=== PATIENT | female | born 1955 | race Caucasian/White ===

== ENCOUNTER 2016-11-03 06:09 | Day surgery (SDC) | payer OTHER ==
[2016-11-02 11:32] VITALS: BMI 30.2
[2016-11-03] MEDS ORDERED: ACETAMINOPHEN INJECTION 100 ML IVPB ONE (07:04)
[2016-11-03] MEDS ORDERED: PROPOFOL 20 ML ONE ×2 (07:10)
[2016-11-03] MEDS ORDERED: ePHEDrine SULFATE 50 MG/1 ML AMPULE ONE (07:10)
[2016-11-03] MEDS ORDERED: SUCCINYLCHOLINE CHLORIDE 200 MG/10 ML VIAL ONE (07:11)
[2016-11-03] MEDS ORDERED: MIDAZOLAM HCL 2 MG/2 ML SINGLE DOSE VIAL ONE (07:11)
[2016-11-03] MEDS ORDERED: LIDOCAINE HCL 2% (20ML MULTI-DOSE VIAL) NR ONE (07:12)
[2016-11-03] MEDS ORDERED: PHENYLEPHRINE HCL 10 MG/1 ML SINGLE DOSE VIAL ONE (07:13)
[2016-11-03] MEDS ORDERED: DEXAMETHASONE SOD PHOSPHATE 4 MG/1 ML VIAL ONE (07:13)
[2016-11-03] MEDS ORDERED: LIDOCAINE 1%/EPI 1:100000 (50 ML MULTI DOSE VIAL) ONE (07:19)
[2016-11-03] MEDS ORDERED: BUPIVACAINE HCL/PF 0.5% (5MG/ML) 10 ML VIAL ONE (07:19)
[2016-11-03] MEDS ORDERED: DESFLURANE GAS 240 ML BOTTLE IH ONE (07:35)
[2016-11-03] MEDS ORDERED: ceFAZolin SODIUM 1 GM VIAL ONE (07:41)
[2016-11-03] MEDS ORDERED: LIDOCAINE 1%/EPI 1:100000 (50 ML MULTI DOSE VIAL) INF ONE ×2 (07:49→08:00)
[2016-11-03] MEDS ORDERED: BUPIVACAINE HCL/PF 0.5% (5MG/ML) 10 ML VIAL IJ ONE (08:00)
--- NOTE | 2016-11-03 08:12 | OP ---
Operative Note - Note: Operative Date: 11/03/16 Pre-Operative Diagnosis: internal derangement right knee Operation: arhtroscopy right knee with partial lateral meniscectomy and chondroplasty trochlea Post-Operative Diagnosis: Same as Pre-op Surgeon: John Valverde Anesthesia: General Estimated Blood Loss (mls): 0 Operative Report Dictated: Yes
[2016-11-03] MEDS ORDERED: oxyCODONE HCL 5 MG TABLET PO PRN (08:18)
[2016-11-03] MEDS ORDERED: ONDANSETRON 4 MG/2 ML VIAL IVPUSH PRN (08:18)
[2016-11-03] MEDS ORDERED: LACTATED RINGERS SOLUTION 1,000 ML IV SCH (08:30)
[2016-11-03] MEDS ORDERED: ONDANSETRON 4 MG/2 ML VIAL ONE (09:40)
[2016-11-03 10:10] VITALS: TEMP 98
[2016-11-03 12:00] VITALS: BP 128/63; PULSE 74
--- NOTE | 2016-11-04 00:18 | OP ---
DATE OF OPERATION: 11/03/2016 PREOPERATIVE DIAGNOSIS: Internal derangement, right knee. POSTOPERATIVE DIAGNOSIS: Internal derangement, right knee. PROCEDURE: Arthroscopy right knee, partial lateral meniscectomy, chondroplasty of the trochlea. SURGEON ATTENDING: John Valverde M.D. ANESTHESIA: General LMA. CLOSURE: 4-0 nylon COMPLICATIONS: None. CONDITION: To recovery room in stable condition. DESCRIPTION OF OPERATIVE PROCEDURE: Patient was taken to the operating room on November 03, 2016, and general anesthesia with LMA was administered by the anesthesiologist. Right lower extremity was prepped and draped in usual sterile fashion. The superolateral and medial lateral infrapatellar portal sites were infiltrated with 1% Xylocaine with epinephrine. Superolateral portal was made with a 15 blade blunt trocar. The right knee was aspirated and inflated with a cocktail of 10 mL of 1% Xylocaine with 0.5% Marcaine and 20 mL of arthroscopic saline. Medial and lateral infrapatellar portals were then made with a 15 blade blunt trocar. The scope was placed in the lateral infrapatellar portal and up into the suprapatellar pouch. Pouch was visualized to be clean. The medial and lateral gutters were visualized to be clean. The undersurface of the patella was found to be intact. The trochlea had some central grade 2-3 changes and debrided using the shaver. With valgus stress on the knee, the medial compartment was entered and medial meniscus was visualized, probed, and found to be intact. The medial femoral condyle was run and found to be intact as was the medial tibial plateau. At 90 degrees the ACL was visualized, probed and found to be intact. In the figure four position, the lateral compartment was entered. Lateral meniscus had some radial tears of its mid portion, was debrided back to smooth, stable shaver. The lateral femoral condyle was run and found to be intact as was the lateral tibial plateau. The knee was irrigated with copious amounts of irrigation. The portals were closed with 4-0 nylon. Prior to closure, 20 mL of 0.5% Marcaine was infused to the knee through the outflow portal prior to pulling the cannula. Sterile pressure dressing was placed over the knee. Patient was awakened from anesthesia and transferred to recovery room in stable condition. No complications. Estimated blood loss was negligible. JOHN VALVERDE M.D. [id number]
== END 2016-11-03 12:08 | disposition home or self-care (01) ==
LOC: JASU-SURG 06:09
PROVIDERS: ATTEND Orthopaedic Surgery
PROC: 0SBC4ZZ Excision of Right Knee Joint, Percutaneous Endoscopic Approach (ICD-10-PCS; principal; 2016-11-03 07:30)
DX: M23.91 Unspecified internal derangement of right knee (principal)
CPT/HCPCS: 88304-TC; 94760; 97116-GP

== ENCOUNTER 2021-10-04 19:12 | Emergency (ER) | payer OTHER ==
[2021-10-04 19:20] VITALS: BP 120/77; TEMP 98.2; BMI 28.3
[2021-10-04 19:57] LABS: EPI CELLS 22 /uL (0-25.1); HYALINE CASTS 1 /uL (0-3.1); PH,URINE 7.5 (5.0-8.0); URINE APPEARANCE CLOUDY; URINE BACTERIA 120 /uL (0-1359); URINE BILIRUBIN NEGATIVE (NEGATIVE); URINE COLOR YELLOW; URINE GLUCOSE (UA) NEGATIVE (NEGATIVE); URINE KETONE TRACE (NEGATIVE); URINE LEUK ESTERASE NEGATIVE (NEGATIVE); URINE NITRITE NEGATIVE (NEGATIVE); URINE PROTEIN NEGATIVE (NEGATIVE); URINE RBC 229 /uL (0-23.9); URINE WBC 12 /uL (0-25.8)
[2021-10-04] MEDS ORDERED: SODIUM CHLORIDE 0.9% 500 ML INFUS.BAG IV ONE (20:02)
[2021-10-04] MEDS ORDERED: ACETAMINOPHEN 1000 MG/100 ML BAG IVPB ONE (20:02)
[2021-10-04] MEDS ORDERED: ACETAMINOPHEN INJECTION 100 ML IVPB ONE (20:08)
[2021-10-04 20:26] LABS: BASO % 0.8 % (0-2.0); EOS % 2.6 % (0-4.5); HEMATOCRIT 38.2 % (32.4-45.2); HEMOGLOBIN 12.7 GM/dL (10.7-15.3); LYMPH % 17.9 % (8-40); MCH 28.8 pg (25.7-33.7); MCHC 33.3 g/dl (32.0-36.0); MEAN CELL VOLUME 86.6 fl (80-96); MEAN PLT VOLUME 9.2 fl (7.5-11.1); MONO % 5.5 % (3.8-10.2); NEUT % 73.2 % (42.8-82.8); PLATELET COUNT 194 10^3/uL (134-434); RBC 4.42 M/mm3 (3.60-5.2); RDW 14.3 % (11.6-15.6)
[2021-10-04 20:45] LABS: CALCIUM 8.8 mg/dL (8.5-10.1)
[2021-10-04 20:46] LABS: ALBUMIN 3.8 g/dl (3.4-5.0); BLOOD UREA NITROGEN 18.6 mg/dL (7-18)
[2021-10-04 20:49] LABS: CREATININE 1.4 mg/dL (0.55-1.3)
[2021-10-04 20:51] LABS: BILIRUBIN,TOTAL 0.3 mg/dL (0.2-1); TOT PROT 6.6 g/dl (6.4-8.2)
[2021-10-04 23:45] LABS: BLOOD UREA NITROGEN 18.7 mg/dL (7-18); CALCIUM 8.4 mg/dL (8.5-10.1)
[2021-10-04 23:49] LABS: CREATININE 0.9 mg/dL (0.55-1.3)
[2021-10-05 00:09] VITALS: PULSE 84
== END 2021-10-05 00:21 | disposition home or self-care (01) ==
LOC: JER 19:12
PROC: 3E033GC Introduction of Other Therapeutic Substance into Peripheral Vein, Percutaneous Approach (ICD-10-PCS; principal; 2021-10-04)
DX: R10.9 Unspecified abdominal pain (principal); N17.9 Acute kidney failure, unspecified
CPT/HCPCS: 36415; 74176-TC; 80048; 80053; 81003; 85025; 87086; 96374; 99285-25

== ENCOUNTER 2025-01-04 06:30 | Day surgery (SDC) | payer OTHER ==
[2025-01-03 11:18] VITALS: BMI 29.2
[2025-01-04] MEDS ORDERED: SIMETHICONE 40 MG/0.6 ML BOTTLE ONE (07:34)
[2025-01-04 09:17] VITALS: RESP 18; TEMP 98
[2025-01-04 10:24] VITALS: BP 121/56; PULSE 64
== END 2025-01-04 10:07 | disposition home or self-care (01) ==
LOC: JASU-ENDO 06:30
PROVIDERS: ATTEND Student in an Organized Health Care Education/Training Program
PROC: 0DBN8ZX Excision of Sigmoid Colon, Via Natural or Artificial Opening Endoscopic, Diagnostic (ICD-10-PCS; principal; 2025-01-04 08:30)
DX: Z12.11 Encounter for screening for malignant neoplasm of colon (principal); D12.5 Benign neoplasm of sigmoid colon; I10 Essential (primary) hypertension
CPT/HCPCS: 82010; 82962; 88305-TC